=== PATIENT | female | born 1965 | race Caucasian/White ===

== ENCOUNTER 2018-07-15 18:24 | Observation (INO) | payer MEDICARE, MEDICAID ==
[~2018-07-15] VITALS: Ht 165.1 cm; Wt 63.3 kg
--- NOTE | 2018-07-15 18:31 | NUR ---
PT BIB [facility], PT WAS BEING RELEASED FROM [facility] AND HAS DISORGANIZED THOUGHTS AND IS UNABLE TO CARE FOR SELF. PT REFUSES TO ANSWER QUESTIONS OR ANSWERS INAPPROPRIATLY. PT IS ALERT WITH NAD. PT IS CONNECTED TO THE MONITOR. CALL LIGHT WITHIN REACH.
--- NOTE | 2018-07-15 18:59 | NUR ---
Report given to Margy HARRELL.
[2018-07-15] MEDS ORDERED: ZIPRASIDONE 20 MG INJ IM ONE (19:15)
--- NOTE | 2018-07-15 19:23 | NUR ---
pt refusing care, stated " i'm leaving now, i'm going outside to smoke a cigarette". pt stated 'I'm not fucking legally required to stay at hospital". discussed poc with erp. pt refusing medication and labs at this time. security called to bedside, pt medicated per mar, transferred to room 40 for sitter to monitor.
[2018-07-15] MEDS ORDERED: ZIPRASIDONE 20 MG INJ IM PRN (19:30)
--- NOTE | 2018-07-15 19:35 | NUR ---
Assumed care of pt. Pt state she refuses to have a nurse and that she will nava. Pt remains in bed. Sitter at doorway.
--- NOTE | 2018-07-15 21:56 | NUR ---
REPORT FROM ENOCH HARRELL. PT RESTING. PER ENOCH PT REFUSING ALL LABS.
--- NOTE | 2018-07-15 22:16 | NUR ---
PT STILL REFUSING LABS. PT SAID "ABSOLUTLY NO WAY". AWARE.
--- NOTE | 2018-07-15 23:19 | NUR ---
PT RESTING UNDER A BLANKET. RN WENT IN TO TALK TO PT. PT SAYS "DONT TOUCH ME. GO AWAY". PT IN NAD. SITTER IN VIEW OF PT.
--- NOTE | 2018-07-15 23:36 | NUR ---
LAB ATTEMPTED TO DRAW. PT STILL REFUSING.
--- NOTE | 2018-07-15 23:56 | NUR ---
PT REFUSING TO GIVE URINE AND BLOOD FOR LABS. TELEPSYCH CONSULT INITIATED.
--- NOTE | 2018-07-16 00:43 | NUR ---
LAB AGAIN ATTEMPTING TO DRAW THIS PT AND PT CONTINUES TO REFUSE AT THIS TIME. MD AWARE, GOING AHEAD WITH TELEPSYCH AT THIS TIME.
--- NOTE | 2018-07-16 02:33 | NUR ---
soc spoke with pt. per soc pt is psychotic and grandious. Soc will send report.
--- NOTE | 2018-07-16 03:33 | NUR ---
ATTEMPTED VITALS. PT REFUSED AND SAID "DONT TOUCH ME". AWARE
--- NOTE | 2018-07-16 04:10 | NUR ---
ADMITTING MD AT BEDSIDE
[2018-07-16] MEDS ORDERED: ZIPRASIDONE 20 MG INJ IM PRN (04:30)
[2018-07-16] MEDS ORDERED: QUETIAPINE 25MG TABLET PO PRN (04:30)
[2018-07-16] MEDS ORDERED: DOCUSATE 100 MG CAPSULE PO PRN (04:30)
[2018-07-16] MEDS ORDERED: LORazepam 1MG TABLET PO PRN (04:30)
[2018-07-16] MEDS ORDERED: DIPHENHYDRAMINE 50 MG CAPSULE PO PRN (04:30)
[2018-07-16] MEDS ORDERED: ACETAMINOPHEN 325 MG TABLET PO PRN (04:30)
[2018-07-16] MEDS ORDERED: ZIPRASIDONE 20 MG INJ IM ONE (05:36)
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
--- NOTE | 2018-07-16 06:02 | NUR ---
PT GIVEN SOCKS. PT CONTINUES TO INSULT RN. PT STILL REFUSING LABS AND UA SAMPLE. SITTER AT BEDSIDE
--- NOTE | 2018-07-16 07:00 | NUR ---
TP RN: packet has not been faxed d/t pt's refusal to provide urine or allow for lab draw, primary RN & pharmacist in charge aware.
--- NOTE | 2018-07-16 08:52 | NUR ---
PT PROVIDED WITH MEAL TRAY AND COFFEE. PT ATE 100% OF MEAL. PT FLIGHT OF IDEAS AND DIFFICULT TO REDIRECT. PT REFUSING LABS AND VERY ABRASIVE IN DISCUSSION. SITTER MONITORING FROM [facility] FOR SAFETY
--- NOTE | 2018-07-16 10:08 | NUR ---
PT SLEEPING IN GURNEY AROUSES TO VERBAL STIMULI. NO ACUTE S/S OF DISTRESS. SITTER MONITORING FROM [facility] FOR SAFETY. PT REFUSES SPO2 MONITOR FOR ROUTINE VS. PT EASILY AGITATED, FLIGHT OF IDEAS, INAPPROPRIATE TO STAFF AND ENVIRONMENT CLAIMING SHE OWNS THE HOSPITAL AND SHE WILL GE[facility], THAT SHE , REFUSES MEDICATION AT THIS TIME TO HELP WITH AGITATION.
--- NOTE | 2018-07-16 10:29 | NUR ---
Ibis cassidy in ED - 07/16/18 at 1030 by ANGIE TP RN: SOC called back for report prior to telepsych eval
--- NOTE | 2018-07-16 11:07 | NUR ---
PT PROVIDED WITH TOOTHBRUSH, TOOTHPASTE, COMB REQUESTED AND COFFEE. DENIES FURTHER NEEDS AT THIS TIME. NO ACUTE S.S OF DISTRESS. SITTER MONITORING FROM [facility]
[2018-07-16 11:08] LABS: AMPHETAMINE SCREEN, URINE Negative (Negative); BARBITURATE SCREEN, URINE Negative (Negative); BENZODIAZEPINE SCREEN, URINE Negative (Negative); CANNABINOID SCREEN, URINE Negative (Negative); COCAINE SCREEN, URINE Negative (Negative); METHADONE SCREEN, URINE Negative (Negative); OPIATE SCREEN, URINE Negative (Negative)
[2018-07-16 11:25] LABS: BASOPHILS # (AUTO) 0.01 x10^3/uL (0-0.1); BASOPHILS % (AUTO) 0 % (0-1); EOSINOPHILS # (AUTO) 0.02 x10^3/uL (0-0.4); EOSINOPHILS % (AUTO) 0 % (1-7); LYMPHOCYTES # (AUTO) 2.22 x10^3/uL (1-3.4); LYMPHOCYTES % (AUTO) 37 % (22-44); MD NO; MEAN CORPUSCULAR HGB CONC 33.7 g/dL (32.4-35.8); MEAN CORPUSCULAR VOLUME 88.9 fL (80-100); MEAN PLATELET VOLUME 9.3 fL (7.4-10.4); MONOCYTES % (AUTO) 7 % (2-9); NEUTROPHILS # (AUTO) 3.33 x10^3/uL (1.8-6.8); NEUTROPHILS % (AUTO) 56 % (42-75); PLATELET COUNT 247 x10^3/uL (130-400); RED CELL DISTRIBUTION WIDTH 12.9 % (9.6-15.2)
[2018-07-16 11:29] LABS: ALBUMIN 3.9 g/dL (3.4-5.0); ANION GAP 5 mmol/L (5-15); CALCIUM 8.8 mg/dL (8.5-10.1); CHLORIDE 110 mmol/L (98-107); SALICYLATE LEVEL 3.1 mg/dL (2.8-20.0)
[2018-07-16 11:30] LABS: CREATININE 0.75 mg/dL (0.55-1.02)
[2018-07-16 11:32] LABS: ACETAMINOPHEN < 2 mcg/mL (10-30)
[2018-07-16] MEDS ORDERED: LORazepam 1MG TABLET ONE (12:27)
[2018-07-16 13:30] VITALS: BP 105/59
[2018-07-16 13:32] VITALS: BP 105/59
[2018-07-16 20:34] VITALS: BP 127/78
== END 2018-07-16 20:52 ==
LOC: MERGE 18:24 → ED 22:04 → SUATTDRO 07-16 04:02 → EDIP 07-16 04:04 → 2N 07-16 13:00
PROVIDERS: ADMIT Internal Medicine; ATTEND Internal Medicine
DX: F23 Brief psychotic disorder (principal); F22 Delusional disorders; F17.200 Nicotine dependence, unspecified, uncomplicated
CPT/HCPCS: 36415; 80048; 80307; 80329; 82040; 85025; 96372; 99284; G0378; J3486; 99285; G0480

== ENCOUNTER 2019-09-13 08:28 | Emergency (ER) | payer MEDICARE, MEDICAID ==
[~2019-09-13] VITALS: Ht 165.1 cm; Wt 79.3 kg
[2019-09-13] MEDS ORDERED: HYDROcodone/APAP 5/325 TABLET PO ONE (09:30)
[2019-09-13] MEDS ORDERED: LIDOCAINE-MPF 1%, 5ML INFIL ONE (09:30)
[2019-09-13] MEDS ORDERED: VANCOMYCIN PER PHARMACY MC PRN (09:30)
[2019-09-13] MEDS ORDERED: SODIUM CHLORIDE FLUSH 10ML SYR IVF ONE (09:30)
[2019-09-13] MEDS ORDERED: DIPH,PERTUSS(ACELL),TET VAC/PF 0.5 ML IM-VACC ONE ×2 (09:30→09:56)
[2019-09-13] MEDS ORDERED: VANCOMYCIN 1,500 MG in SODIUM CHLORIDE 0.9% 250 ML IV ONE (09:30)
--- NOTE | 2019-09-13 09:30 | NUR ---
PT PRESENTS TO ED WTIH C/O LEFT MIDDLE FINGER SWELLING AND PAIN X 1 WEEK. RADIOLOGY RESULTS REVIEWED BY MARV MUNSON. PT TO BE ADMITTED FOR OSTEOMYELITIS. PT INFORMED OF POC, AGREES TO ADMISSION. PT A&O, RESPS EVEN AND UNLABORED, NADN.
[2019-09-13] MEDS ORDERED: HYDROcodone/APAP 5/325 TABLET ONE (09:33)
[2019-09-13] MEDS ORDERED: LIDOCAINE-MPF 1%, 5ML ONE (09:35)
--- NOTE | 2019-09-13 09:48 | NUR ---
LAB AT BEDSIDE FOR BLOOD CX DRAW, FIRST SET DRAWN BY RN WITH PIV START. MASK WORN BY RN AND PT WITH PIV START PER POLICY. PT MEDICATED PER EMAR FOR FINGER PAIN, TOELRATED WELL. VANCO TO INFUSE ONCE SECOND SET BLOOD CX DRAWN BY LAB.
[2019-09-13 10:09] LABS: BASOPHILS # (AUTO) 0.02 x10^3/uL (0-0.1); BASOPHILS % (AUTO) 0 % (0-1); EOSINOPHILS # (AUTO) 0.09 x10^3/uL (0-0.4); EOSINOPHILS % (AUTO) 1 % (1-7); LYMPHOCYTES # (AUTO) 2.12 x10^3/uL (1-3.4); LYMPHOCYTES % (AUTO) 26 % (22-44); MD NO; MEAN CORPUSCULAR HEMOGLOBIN 30.1 pg (27.0-34.8); MEAN CORPUSCULAR HGB CONC 33.9 g/dL (32.4-35.8); MEAN CORPUSCULAR VOLUME 88.6 fL (80-100); MEAN PLATELET VOLUME 8.1 fL (7.4-10.4); MONOCYTES # (AUTO) 0.56 x10^3/uL (0.2-0.8); MONOCYTES % (AUTO) 7 % (2-9); NEUTROPHILS # (AUTO) 5.39 x10^3/uL (1.8-6.8); NEUTROPHILS % (AUTO) 66 % (42-75); PLATELET COUNT 351 x10^3/uL (130-400); RED BLOOD COUNT 5.15 x10^6/uL (3.82-5.3); RED CELL DISTRIBUTION WIDTH 13.6 % (9.6-15.2)
--- NOTE | 2019-09-13 10:18 | NUR ---
VANCO INFUSING AFTER BLOOD CX DRAWN X 2. PT A&O, RESPS EVEN AND UNLABORED. BP AND SPO2 MONITORS IN PLACE. AWAITING ADMIT ROOM ASSIGNMENT AND TRANSPORT. CONTACT PRECAUTIONS IN PLACE FOR HX MRSA.
[2019-09-13 10:20] LABS: ALBUMIN 3.4 g/dL (3.4-5.0); ANION GAP 7 mmol/L (5-15); CALCIUM 8.4 mg/dL (8.5-10.1); CHLORIDE 109 mmol/L (98-107)
[2019-09-13 10:21] LABS: CREATININE 0.67 mg/dL (0.55-1.02)
--- NOTE | 2019-09-13 10:54 | NUR ---
REDNESS AND SWELLING DEVELOPED ABOVE PIV SITE AFTER VANCO INFUSION INITIATED, PT DENIES PAIN. PIV REMAINS PATENT, FLUSHES EASILY. PHARMACY AND MARV MUNSON NOTIFIED. PHARMACIST RECOMMNEDED REDUCING VANCO RATE BY HALF, RN DID THIS WITH NO IMPROVEMENT TO REDNESS/SWELLING. REPSS EVEN AND UNLABORED, NO ITCHINESS, NO ANGIOEDEMA, NO OTHER SX HAVE DEVELOPED. PHARMACY AND MARV MUNSON NOTIFIED, NEW PIV PLACED PER PHARMACIST'S RECOMMENDATION. VANCO INFUSING AT RATE OF 80ML/HR, PT TOLERATING WELL AT THIS TIME.
--- NOTE | 2019-09-13 11:02 | NUR ---
MARV MUNSON AT BEDSIDE FOR I&D, PT A&O, RESPS EVEN AND UNLABORED, REPORTS PAIN TO LEFT MIDDLE FINGER RESOLVED S/P NORCO.
[2019-09-13 11:14] VITALS: BP 155/102
--- NOTE | 2019-09-13 11:15 | NUR ---
SECOND IV TOLERATING VANCO WELL, NO REDNESS/SWELLING NOTED. REDNESS AND SWELLING RESOLVED TO INITIAL IV SITE. PT A&O, RESPS EVEN AND UNLABORED. PT DID NOT TOLERATE I&D WITH EDPA, I&D POSTPONED. REPORT GIVEN TO HOOD TOMLINSON.
--- NOTE | 2019-09-13 11:49 | NUR ---
REMOVED INITIAL PIV SECONDARY TO REDNESS AROUND THE INSERTION SITE. PT VERBALLY ABUSIVE TO THIS RN AND THE PA AND IS USING PROFANITY.
== END 2019-09-13 12:04 ==
LOC: ED 09:43
DX: M86.141 Other acute osteomyelitis, right hand (principal); Z53.29 Procedure and treatment not carried out because of patient's decision for other reasons
CPT/HCPCS: 36415; 73130; 80048; 82040; 83605; 85025; 87040; 90471; 90715; 96365; 96366; 99284; J3370; J7050